=== PATIENT | male | born 1965 | race Caucasian/White ===

== ENCOUNTER 2023-12-24 23:48 | Emergency (ER) | payer BC, SELFPAY ==
[2023-12-24 23:53] VITALS: BP 128/75
--- NOTE | 2023-12-25 01:12 | ED.GENMED ---
History of Present Illness
General
Chief Complaint: Skin Problem
Source: patient
Exam Limitations: none
Time Seen by Provider: 12/25/23 00:39
Nursing documentation reviewed up to this point in time: agreed with
History of Present Illness
History of Present Illness:
Patient with history of diabetes and peripheral neuropathy, presents to ED secondary to burn injury to bottom of his feet 2 days ago, when he was walking on hot sand at [place] barefooted. Later in the day, patient felt discomfort and when
looked, there was a blister and open wound. Patient was seen at the urgent care center earlier yesterday where wound was cleansed and dressing applied, along with prescription for Keflex, which has not been filled. Since then, patient has noticed
increased sloughing of the skin and noticed that there was some sand still embedded within the blister. Denies fever or chills. Denies nausea or vomiting. Patient reports having received tetanus vaccination at urgent care center.
Past History
Past History
ED Past Medical History: HTN, NIDDM and Other (AMANDA, morbic obesity)
Social History
Tobacco: Non-smoker
Review of Systems
Review of Systems
Allergies reviewed?: Yes
All Other Systems: ROS reviewed and negative except as documented in HPI and ROS
Constitutional: Reports no symptoms; Denies fever or chills
ABD/GI: Reports no symptoms
Musculoskeletal: Reports no symptoms
Skin: Reports other (Burn injury to feet)
Neurological: Reports no symptoms
Phy Exam
Physical Exam
Physical Exam:
Physical Exam
General: no apparent distress, not acutely ill. afebrile.
Head: nc/at. eomi
Neck: supple. normal range of motion.
Neuro: alert and oriented. no focal neurological deficits
Skin: 2nd degree burn injury noted over plantar surface of b/l feet, predominantly at base of 1st/2nd phalanx, without bleeding/purulent drainage. Within one blister on right foot, sand noted inside.
Psychiatric: well kept. interactive and cooperative
Extremities: no edema. no calf tenderness.
Course
Orders/Labs/Results
Orders:
Orders
12/25/23 01:27
Cephalexin Monohydrate [Keflex] 500 mg PO NOW STA
Vital Signs
Initial and Last Documented VS:
Initial Vital Signs
Temp Pulse Resp BP Pulse Ox
97.6 F 77 17 128/75 97
12/24/23 23:53 12/24/23 23:53 12/24/23 23:53 12/24/23 23:53 12/24/23 23:53
Last Documented Vital Signs
Temp Pulse Resp BP Pulse Ox
97.6 F 77 17 128/75 97
12/24/23 23:53 12/24/23 23:53 12/24/23 23:53 12/24/23 23:53 12/24/23 23:53
MDM/Problems Addressed
MDM/Problems Addressed:
History and exam consistent with second-degree burn. No evidence of superimposed infection noted. However, 1 blister which is open at the tip, there appears to be fair amount of sand settled at the bottom. Decision made to open the blister
jail and irrigated with saline to remove sand. Afterwards, antibiotic ointment applied and nonadhesive dressing provided. Patient will be referred to podiatry for an outpatient follow-up. As patient is unsure about where is Keflex prescription
is, Keflex prescription will be called into his pharmacy locally
*Critical Care Note
Total Time (30-74mins, 75-104mins- exclusive of procedures): Not Applicable
ED Attending Note
-
Portions of this chart may have been created with voice recognition software.� Occasional wrong word or��sound alike� substitutions may have occurred due to the inherent limitations of voice recognition software.
Discharge Plan
Departure
Patient Disposition: Home (Routine Discharge)
Date of Disposition: 12/25/23
Time of Disposition: 01:19
Patient with high blood pressure during this ER visit?: Yes
Condition: Good
Discharge Problem:
Second degree burn of foot
Instructions: Skin cannon, Wound Care (DC)
Prescriptions:
New
cephalexin 500 mg capsule
500 mg PO Q8H Qty: 15 0RF
No Action
cephalexin 500 MG capsule
500 mg PO BID Qty: 14 0RF
Referrals:
Saqib Jim DPM [Specified Professional Personl] -
Caren Zavala PA [Family Provider] -
Activity Restrictions/Additional Instructions:
As discussed, please follow-up with your primary care physician and/or referred bioinformatics research technician for further evaluation and treatment.
Interventions
Interventions:
*Risk Screen - Suicide Last Done: 12/24/23 23:53
*General Assessment Last Done: 12/24/23 23:53
*Neglect/Abuse Screening Last Done: 12/24/23 23:53
ED- Fall Risk Assessment Last Done: 12/24/23 23:53
*ED COVID-19 Vaccine History Last Done: 12/24/23 23:53
*Nursing Disposition Last Done: 12/25/23 02:25
ED-Skin Assessment Last Done: 12/25/23 02:25
Discharge Date and Time
Discharge Date/Time: 12/25/23 02:26
Print Language: GERMAN
[2023-12-25] MEDS: KEFLEX 500 MG PO (01:36)
== END 2023-12-25 02:26 | disposition home or self-care (01) ==
LOC: EMR 23:48
PROVIDERS: EMERGENCY PHYSICIAN Emergency Medicine; FAMILY PHYSICIAN Family Medicine
DX: T25.229A Burn of second degree of unspecified foot, initial encounter (principal); X08.8XXA Exposure to other specified smoke, fire and flames, initial encounter; I10 Essential (primary) hypertension; E11.42 Type 2 diabetes mellitus with diabetic polyneuropathy; G47.33 Obstructive sleep apnea (adult) (pediatric); E66.9 Obesity, unspecified
CPT/HCPCS: 99282

== ENCOUNTER → 2024-01-01 08:50 | Outpatient (REF) | payer BC, SELFPAY | LOC: WOUND 08:50 | PROVIDERS: ATTENDING PHYSICIAN Surgery; FAMILY PHYSICIAN Family Medicine | DX: T25.221A Burn of second degree of right foot, initial encounter (principal); E11.40 Type 2 diabetes mellitus with diabetic neuropathy, unspecified; X19.XXXA Contact with other heat and hot substances, initial encounter; Y93.01 Activity, walking, marching and hiking; Y92.832 Beach as the place of occurrence of the external cause | CPT/HCPCS: 99203 ==

== ENCOUNTER → 2024-01-11 10:06 | Outpatient (REF) | payer BC, SELFPAY | LOC: WOUND 10:06 | PROVIDERS: ATTENDING PHYSICIAN Surgery; FAMILY PHYSICIAN Family Medicine | DX: T25.221A Burn of second degree of right foot, initial encounter (principal); E11.40 Type 2 diabetes mellitus with diabetic neuropathy, unspecified; X19.XXXA Contact with other heat and hot substances, initial encounter; Y92.832 Beach as the place of occurrence of the external cause | CPT/HCPCS: 99213 ==

== ENCOUNTER → 2024-01-25 07:34 | Outpatient (REF) | payer BC, SELFPAY | LOC: WOUND 07:34 | PROVIDERS: ATTENDING PHYSICIAN Surgery; FAMILY PHYSICIAN Family Medicine | DX: T25.221A Burn of second degree of right foot, initial encounter (principal); E11.40 Type 2 diabetes mellitus with diabetic neuropathy, unspecified; X19.XXXA Contact with other heat and hot substances, initial encounter | CPT/HCPCS: 99213 ==

== ENCOUNTER → 2024-02-08 09:28 | Outpatient (REF) | payer BC, SELFPAY | LOC: WOUND 09:28 | PROVIDERS: ATTENDING PHYSICIAN Surgery; FAMILY PHYSICIAN Family Medicine | DX: T25.221A Burn of second degree of right foot, initial encounter (principal); E11.40 Type 2 diabetes mellitus with diabetic neuropathy, unspecified; X19.XXXA Contact with other heat and hot substances, initial encounter | CPT/HCPCS: 97597 ==

== ENCOUNTER → 2024-02-15 09:03 | Outpatient (REF) | payer BC, SELFPAY | LOC: WOUND 09:03 | PROVIDERS: ATTENDING PHYSICIAN Surgery; FAMILY PHYSICIAN Family Medicine | DX: T25.221A Burn of second degree of right foot, initial encounter (principal); E11.40 Type 2 diabetes mellitus with diabetic neuropathy, unspecified; X19.XXXA Contact with other heat and hot substances, initial encounter | CPT/HCPCS: 99213 ==

== ENCOUNTER → 2024-02-29 08:59 | Outpatient (REF) | payer BC, SELFPAY | LOC: WOUND 08:59 | PROVIDERS: ATTENDING PHYSICIAN Surgery; FAMILY PHYSICIAN Family Medicine | DX: T25.221A Burn of second degree of right foot, initial encounter (principal); E11.40 Type 2 diabetes mellitus with diabetic neuropathy, unspecified; X08.8XXA Exposure to other specified smoke, fire and flames, initial encounter | CPT/HCPCS: 99212 ==

== ENCOUNTER 2024-10-12 17:41 | Emergency (ER) | payer BC, SELFPAY ==
[2024-10-12 17:43] VITALS: BP 163/84
[2024-10-12 18:25] LABS: % Basophils 0.6 % (0-2); % Eosinophils 2.1 % (0-6); % Immature Granulocytes 0.5 % (0-0.5); % Lymphocytes 19.6 % (20.5-51.1); % Monocytes 7.9 % (1.7-9.3); % Neutrophils 69.3 % (42.2-75.2); Absolute Basophils 0.1 10^3/uL (0-0.2); Absolute Eosinophils 0.2 10^3/uL (0-0.7); Absolute Lymphocytes 1.7 10^3/uL (1.2-3.4); Absolute Monocytes 0.7 10^3/uL (0.1-0.6); Hematocrit 45.3 % (39.0-52.0); Hemoglobin 15.5 g/dL (13.0-18.0); Mean Corp Hgb Conc. 34.2 g/dL (33.0-37.0); Mean Corpuscular Volume 87.8 fL (80.0-94.0); Mean Platelet Volume 8.3 fL (7.4-10.4); Nucleated Red Blood Cells % 0 % (-); Platelet Count 221 10^3/uL (130-400); Red Blood Cell Count 5.16 10^6/uL (4.70-6.10); Red Cell Dist. Width 14.1 % (11.5-14.5); White Blood Cell Count 8.6 10^3/uL (4.8-10.8)
[2024-10-12] MEDS: DUONEB 3 ML INH (18:33)
[2024-10-12 18:39] LABS: ALT (SGPT) 31 U/L (0-50); AST (SGOT) 32 U/L (17-59); Albumin 4.7 g/dl (3.5-5.0); Alkaline Phosphatase 69 U/L (38-126); Blood Urea Nitrogen 16 mg/dl (9-20); Calcium 9.7 mg/dl (8.4-10.2); Carbon Dioxide 21 mmol/L (22-30); Chloride 102 mmol/L (98-107); Glucose 285 mg/dl (70-99); Potassium 4.1 mmol/L (3.5-5.1); Sodium 137 mmol/L (135-145); Total Bilirubin 0.9 mg/dl (0.2-1.3); eGFR > 60.00
[2024-10-12 18:45] LABS: COVID-19 Antigen Negative (Negative)
[2024-10-12 18:48] LABS: Troponin I < 0.012 ng/ml
--- NOTE | 2024-10-12 19:59 | ED.GENMED ---
History of Present Illness
General
Chief Complaint: Breathing Problem
Time Seen by Provider: 10/12/24 18:04
History of Present Illness
History of Present Illness:
59-year-old male presents to the emergency department for ration of persistent sinus pressure and nasal congestion for the past 2 weeks. Completed a course of Zithromax with no associated symptom improvement. Began to have chills and sweats as
well as increased shortness of breath and went to his primary care physician yesterday and was prescribed cefadroxil. He continues to feel worse despite this. No chest pain
Past History
Past History
ED Past Medical History: HTN, NIDDM and Other (AMANDA, morbic obesity)
Social History
Tobacco: Non-smoker
Review of Systems
Review of Systems
Allergies reviewed?: Yes
All Other Systems: ROS reviewed and negative except as documented in HPI and ROS
Phy Exam
Physical Exam
Physical Exam:
GEN: Well appearing, NAD, WDWN
HEENT: Oral mucosa moist, no scleral icterus, mild postnasal drip
Cardiac: Regular rate and rhythm, no murmurs
Lung: Mildly tachypneic, coarse expiratory wheezing heard throughout all lung wooten
MSK: No gross deformity or injuries
Skin: Good color, no pallor or jaundice, no rashes
Neuro: AO x3, moves all extremities freely
Psych: Calm, cooperative
Scores
Heart Failure Risk
Heart Failure Risk Score: Not Applicable
Course
Orders/Labs/Results
Orders:
Orders
10/12/24 18:04
Electrocardiogram (*1) Urgent
Reason for Study: Shortness of Breath
EKG- Treatment ONCE
10/12/24 18:18
Complete Blood Count/With Diff Urgent
Comprehensive Metabolic Panel Urgent
Troponin I Urgent
CR Chest - 2 Views Urgent
Comment:
Reason For Exam: cough, SOB
10/12/24 18:21
COVID-19 Antigen Urgent
Source: Nasal Swab
Influenza A+B Rapid Molecular Urgent
NANOD Source: Nasal Swab
Specimen Description:
10/12/24 18:24
Ipratropium/Albuterol Sulfate [Duoneb] 3 ml INH R NOW ONE
Abnormal Lab Results
10/12/24
18:18
Absolute Monos (auto) 0.7 H 10^3/uL
(0.1-0.6)
Lymphocytes % 19.6 L %
(20.5-51.1)
Carbon Dioxide 21 L mmol/L
(22-30)
Glucose 285 H mg/dl
(70-99)
10/12/24 18:18
10/12/24 18:18
Vital Signs
Initial and Last Documented VS:
Initial Vital Signs
Temp Pulse Resp BP Pulse Ox
97.7 F 117 16 163/84 95
10/12/24 17:43 10/12/24 17:43 10/12/24 17:43 10/12/24 17:43 10/12/24 17:43
Last Documented Vital Signs
Temp Pulse Resp BP Pulse Ox
97.7 F 113 20 164/80 95
10/12/24 17:43 10/12/24 20:09 10/12/24 20:05 10/12/24 20:09 10/12/24 20:09
MDM/Problems Addressed
MDM/Problems Addressed:
Wheezing resolved after neb treatment. Likely reactive bronchitis, hesitant to prescribe oral steroids given that he is a [id number] diabetic with elevated sugars here thus we will try inhaled steroids in addition to bronchodilators,
continued antibiotics
*Critical Care Note
Total Time (30-74mins, 75-104mins- exclusive of procedures): Not Applicable
ED Attending Note
-
Portions of this chart may have been created with voice recognition software.� Occasional wrong word or��sound alike� substitutions may have occurred due to the inherent limitations of voice recognition software.
Discharge Plan
Departure
Patient Disposition: Home (Routine Discharge)
Date of Disposition: 10/12/24
Time of Disposition: 19:59
Patient with high blood pressure during this ER visit?: No
Discharge Problem:
Bronchitis
Instructions: Acute Bronchitis, Adult (DC)
Prescriptions:
New
fluticasone propionate 110 mcg/actuation HFA aerosol inhaler
2 inh inhalation BID 14 Days Qty: 12 0RF
albuterol sulfate 90 mcg/actuation HFA aerosol inhaler
2 inh inhalation Q4H PRN (Reason: shortness of breath or wheezing) Qty: 6.7 0RF
No Action
cephalexin 500 MG capsule
500 mg PO BID Qty: 14 0RF
cephalexin 500 mg capsule
500 mg PO Q8H Qty: 15 0RF
Referrals:
Naldo Renae MD [Family Provider] -
Stand Alone Forms: Return to Work
Interventions
Interventions:
*Risk Screen - Suicide Last Done: 10/12/24 17:43
*Neglect/Abuse Screening Last Done: 10/12/24 17:43
*Nursing Disposition Last Done: 10/12/24 20:14
ED- Cardiac Assessment Last Done: 10/12/24 18:29
ED- Pulmonary Assessment Last Done: 10/12/24 18:29
Discharge Date and Time
Discharge Date/Time: 10/12/24 20:14
Print Language: ARMENIAN
[2024-10-12 20:05] VITALS: BP 164/80
[2024-10-12 20:09] VITALS: BP 164/80
== END 2024-10-12 20:14 | disposition home or self-care (01) ==
LOC: EMR 17:41
PROVIDERS: Physician Assistant; EMERGENCY PHYSICIAN Emergency Medicine; FAMILY PHYSICIAN Family Medicine
DX: J40 Bronchitis, not specified as acute or chronic (principal); I10 Essential (primary) hypertension; E11.9 Type 2 diabetes mellitus without complications; E66.9 Obesity, unspecified; G47.33 Obstructive sleep apnea (adult) (pediatric); Z79.51 Long term (current) use of inhaled steroids
CPT/HCPCS: 99283; 94640; 71046; 80053; 84484; 85025; 87502; 87811; 93005

== ENCOUNTER 2025-01-08 12:24 | Emergency (ER) | payer BC, SELFPAY ==
[2025-01-08 12:28] VITALS: BP 134/79
[2025-01-08 15:07] VITALS: BMI 34.3
[2025-01-08] MEDS: TYLENOL 1000 MG PO (15:34)
--- NOTE | 2025-01-08 15:52 | ED.GENMED ---
History of Present Illness
General
Chief Complaint: Fall
Time Seen by Provider: 01/08/25 15:06
Nursing documentation reviewed up to this point in time: agreed with
History of Present Illness
History of Present Illness:
59-year-old male presents to the ER for evaluation after he fell while walking down a flight of steps that did not have the railing attached. Patient states that he missed a step on approximately the 4th or 5th step causing him to fall off to the
side. He landed on the left outstretched hand and his left hip. He did strike his head on a pole. He had no loss of consciousness. No neck pain. No change in vision. No vomiting. He is not on any blood thinners. No paresthesias to arms or
legs. He reports severe pain localized to his left wrist. He is right-handed. He has been able to ambulate since the injury. He did not take any pain relievers prior to arrival.
Past History
Past History
ED Past Medical History: HTN, NIDDM and Other (AMANDA, morbic obesity)
Social History
Tobacco: Non-smoker
Phy Exam
Physical Exam
Physical Exam:
Patient is awake, alert, appears in no acute distress, mild pain on palpation over right lateral scalp, however there is no overlying ecchymosis, skin is intact, no swelling, no midline pain on palpation of cervical thoracic or lumbar spine, full
active range of motion noted to cervical spine, no pain on palpation of chest wall, pelvis is stable to rock, patient is able to move himself on the stretcher without assistance, full active range of motion bilateral hips without apparent limitation
although patient notes some discomfort with movement of the left hip, no distal edema noted, 2+ DP pulses symmetric bilateral feet, GCS is 15, left wrist examination reveals significant swelling over the dorsal lateral aspect of the wrist with
localized pain on palpation of the distal radius only, intact sensation to light touch symmetric bilateral hands with brisk cap refill to the digits
Course
Orders/Labs/Results
Orders:
Orders
01/08/25 12:31
Wrist, Left 3 Views CR [CR Wrist - Left Min 3 Views] Urgent
Comment:
Reason For Exam: fall
01/08/25 15:18
Ice Pack-Treatment DIRECTED
Location: L wrist
Acetaminophen [Tylenol] 1,000 mg PO NOW STA
Hips, Bilat 3-4 view W/AP Pelvis [CR Hips KAELA w/wo Pel 3-4 Vw] Urgent
Comment:
Reason For Exam: trauma
Include a pelvis x-ray?: Yes
Lumbar Spine, 2 or 3 View [CR Lumbar Spine 2 Or 3 Views] Urgent
Comment:
Reason For Exam: trauma
01/08/25 16:57
Splints/Slings/Crut- Treatment ONCE
Location: Left
Type of Splint: Volar
01/08/25 17:02
Lidocaine [Lidocaine 4% Patch] 1 patch TOPICAL ONCE ONE
Apply Lidocaine patch(s) to:: low back
Vital Signs
Initial and Last Documented VS:
Initial Vital Signs
Temp Pulse Resp BP Pulse Ox
98.1 F 96 20 134/79 96
01/08/25 12:28 01/08/25 12:28 01/08/25 12:28 01/08/25 12:28 01/08/25 12:28
Last Documented Vital Signs
Temp Pulse Resp BP Pulse Ox
98.1 F 96 20 134/79 96
01/08/25 12:28 01/08/25 12:28 01/08/25 12:28 01/08/25 12:28 01/08/25 15:53
MDM/Problems Addressed
Differential Diagnosis Includes:
Differential diagnosis to consider but not limited to sprain, strain, fracture along with other etiologies considered
*Radiology
Radiology exam reviewed: preliminary read by ED provider (I independently reviewed and interpreted x-ray of the left wrist revealing a nondisplaced distal radius fracture. I reviewed radiology interpretation which is in agreement.I independently
viewed and interpreted x-rays of lumbar spine and pelvis with hips which did not show any fracture or malalignm) and radiology read reviewed (IMPRESSION: Subtle comminuted intra-articular fracture of the distal left radius.)
*Pulse Oximetry
SaO2: 96
Oxygen Mode of Delivery: Room air
Patient hypoxic: no
*Critical Care Note
Total Time (30-74mins, 75-104mins- exclusive of procedures): Not Applicable
Update Note
Update Note:
I reviewed with patient and spouse present bedside presence of nondisplaced distal radius fracture. I discussed with him need for splint and close outpatient follow-up with orthopedics. Discussed with him use of ice, NSAIDs, rest elevation and
limited use of left hand until seen in follow-up. Patient expressed understanding of this plan. Splint applied by tech. I did remove patient's wedding band prior to splint application. I discussed with patient and no evidence for acute
traumatic process seen in lumbar spine or bilateral hips-I discussed with him anticipated normal healing course along with need for hydration and strict return precautions. Patient has no red flag warning symptoms, CT head not indicated. They felt
comfortable with plan for discharge and had no questions prior to the department
ED Attending Note
-
Portions of this chart may have been created with voice recognition software.� Occasional wrong word or��sound alike� substitutions may have occurred due to the inherent limitations of voice recognition software.
Discharge Plan
Departure
Patient Disposition: Home (Routine Discharge)
Date of Disposition: 01/08/25
Time of Disposition: 17:03
Patient with high blood pressure during this ER visit?: No
Discharge Problem:
Distal radius fracture, left, Acute myofascial strain of lumbar region, Abrasion of elbow, left
Prescriptions:
New
ibuprofen 600 mg tablet
600 mg PO Q8H PRN (Reason: pain) Qty: 14 0RF
No Action
cephalexin 500 MG capsule
500 mg PO BID Qty: 14 0RF
cephalexin 500 mg capsule
500 mg PO Q8H Qty: 15 0RF
fluticasone propionate 110 mcg/actuation HFA aerosol inhaler
2 inh inhalation BID 14 Days Qty: 12 0RF
albuterol sulfate 90 mcg/actuation HFA aerosol inhaler
2 inh inhalation Q4H PRN (Reason: shortness of breath or wheezing) Qty: 6.7 0RF
Referrals:
Naldo Renae MD [Family Provider, Family Practice]
Ernie Meyer MD [Active, Orthopedics] - Next open appointment
Stand Alone Forms: Return to Work
Activity Restrictions/Additional Instructions:
Use ibuprofen as prescribed along with Tylenol as needed for pain. Maintain splint as applied until seen in follow-up with orthopedics. Please contact their office tomorrow to schedule appointment for reevaluation and further care. When you are
not walking, please elevate your hand and apply ice for 20 minutes 3-4 times daily as needed for pain and swelling.
Interventions
Interventions:
*Risk Screen - Suicide Last Done: 01/08/25 12:28
*General Assessment Last Done: 01/08/25 12:28
*Neglect/Abuse Screening Last Done: 01/08/25 12:28
*ED- Fall Risk Assessment Last Done: 01/08/25 15:07
*ED COVID-19 Vaccine History Last Done: 01/08/25 15:07
ED-Musculoskeletal Assessment Last Done: 01/08/25 15:07
ED- Neurological Assessment Last Done: 01/08/25 15:07
ED-Skin Assessment Last Done: 01/08/25 15:07
Discharge Date and Time
Print Language: [id number]
[2025-01-08] MEDS: LIDOCAINE 4% PATCH 1 PATCH TOPICAL (17:05)
[2025-01-08 17:46] VITALS: BP 135/75
== END 2025-01-08 17:47 | disposition home or self-care (01) ==
LOC: EMR 12:24
PROVIDERS: EMERGENCY PHYSICIAN Emergency Medicine; FAMILY PHYSICIAN Family Medicine
DX: S52.502A Unspecified fracture of the lower end of left radius, initial encounter for closed fracture (principal); S39.012A Strain of muscle, fascia and tendon of lower back, initial encounter; S50.312A Abrasion of left elbow, initial encounter; W19.XXXA Unspecified fall, initial encounter; Y93.01 Activity, walking, marching and hiking; E11.9 Type 2 diabetes mellitus without complications; E66.9 Obesity, unspecified; G47.33 Obstructive sleep apnea (adult) (pediatric); I10 Essential (primary) hypertension
CPT/HCPCS: 99283; 29125; 72100; 73110; 73522